=== PATIENT | female | born 1960 | race Caucasian/White ===

== ENCOUNTER → 2021-03-16 | Outpatient (CLI) | payer OTHER ==
--- NOTE | 2021-03-16 15:21 | REP ---
INDICATION: CARPAL TUNNEL. COMPARISON: None. TECHNIQUE: AP, lateral, oblique views of the right wrist FINDINGS: Mild generalized age-related changes are appreciated including subtle sclerosis along the periarticular surfaces. Old ulnar styloid fracture is suggested. No acute fracture or dislocation. IMPRESSION: Essentially age-related changes. <Electronically signed by Gibran Mas > 03/16/21 [id number]
== END ==
LOC: M SOG 13:34
PROVIDERS: ATTEND Orthopaedic Surgery Sports Medicine
DX: G56.01 Carpal tunnel syndrome, right upper limb (principal)

== ENCOUNTER 2021-09-15 07:40 | Day surgery (SDC) | payer OTHER ==
[~2021-09-15] VITALS: Ht 157.5 cm; Wt 79.4 kg
[~2021-09-15 07:40] MED LIST: ATOR1TAB19 PO; DIPH50CA PO; EMLA CREAM 5GM TUBE (LIDOCAINE/PRILOCAINE) TOP PRN; LIDOCAINE 1% MDV 20ML VIAL SQ PRN; LOSA100T5 PO; LR 1,000 ML IV ONE; MELO15TA28 PO
[2021-09-15] MEDS ORDERED: MIDAZOLAM INJ 2MG/2ML VIAL (J2250 PER 1MG) As Ordered ONE (09:16)
[2021-09-15] MEDS ORDERED: fentaNYL 100 MCG/2 ML INJECTION As Ordered ONE (09:17)
[2021-09-15] MEDS ORDERED: BUPIVACAINE HCL 0.25% 10ML VIAL As Ordered ONE (09:44)
[2021-09-15] MEDS ORDERED: dexameTHASONE 4 MG/ML 1ML VIAL (J1100 PER 1MG) As Ordered ONE (10:07)
[2021-09-15] MEDS ORDERED: propofoL 200 MG/20 ML VIAL As Ordered ONE (10:07)
[2021-09-15] MEDS ORDERED: LIDOCAINE 2% INJ 100 MG/5 ML SYRINGE As Ordered ONE (10:07)
[2021-09-15] MEDS ORDERED: ONDANSETRON 4MG/2ML VIAL As Ordered ONE (10:07)
[2021-09-15] MEDS ORDERED: KETOROLAC 60MG 2ML VIAL As Ordered ONE (10:32)
[2021-09-15] MEDS ORDERED: fentaNYL 100 MCG/2 ML INJECTION IV PRN (11:00)
[2021-09-15] MEDS ORDERED: ONDANSETRON 4MG/2ML VIAL IV PRN (11:00)
[2021-09-15] MEDS ORDERED: METOCLOPRAMIDE INJ 10MG/2ML VIAL (J2765 PER 1) IV PRN (11:00)
[2021-09-15] MEDS ORDERED: LR 1,000 ML IV SCH (11:00)
[2021-09-15] MEDS ORDERED: oxyCODONE 5MG TAB PO PRN (11:00)
[2021-09-15 11:49] VITALS: BP 137/78
== END 2021-09-15 12:12 | disposition home or self-care (01) ==
LOC: M SDC 07:40
PROVIDERS: ATTEND Orthopaedic Surgery Hand Surgery
DX: G56.01 Carpal tunnel syndrome, right upper limb (principal); I10 Essential (primary) hypertension; E78.00 Pure hypercholesterolemia, unspecified; M19.90 Unspecified osteoarthritis, unspecified site; R06.83 Snoring; Z79.899 Other long term (current) drug therapy
CPT/HCPCS: 29848; J1100; J1885; J2250; J2405; J3010

== ENCOUNTER → 2024-09-30 | Outpatient (REF) | payer OTHER, BC ==
[~2024-09-30] MED LIST changes: -EMLA CREAM 5GM TUBE (LIDOCAINE/PRILOCAINE) TOP PRN; -LIDOCAINE 1% MDV 20ML VIAL SQ PRN; -LR 1,000 ML IV ONE
== END ==
LOC: M LAB REF 17:08
PROVIDERS: ATTEND Neuromusculoskeletal Medicine, Sports Medicine
DX: M17.11 Unilateral primary osteoarthritis, right knee (principal)

== ENCOUNTER → 2024-10-15 | Outpatient (CLI) | payer BC ==
[~2024-10-15] MED LIST changes: +ATOR1TAB21 PO; +IBUP80TA PO; +PHEN37.511 PO; +SUZE50TA PO
== END ==
LOC: M RAD 16:23
PROVIDERS: ATTEND Neuromusculoskeletal Medicine, Sports Medicine
DX: M17.11 Unilateral primary osteoarthritis, right knee (principal)

== ENCOUNTER → 2024-12-20 | Outpatient (CLI) | payer BC ==
[~2024-12-20] MED LIST changes: +ASPI81TAEC PO; +PERCOCET PO
== END ==
LOC: M SOG 06:49
PROVIDERS: ATTEND Physician Assistant
DX: S83.421A Sprain of lateral collateral ligament of right knee, initial encounter (principal); M17.11 Unilateral primary osteoarthritis, right knee; Y93.9 Activity, unspecified; Y92.9 Unspecified place or not applicable

== ENCOUNTER → 2025-05-15 | Outpatient (CLI) | payer BC ==
[~2025-05-15] MED LIST changes: -DIPH50CA PO; +DIPH50CA31 PO
== END ==
LOC: M SOG 07:34
PROVIDERS: ATTEND Neuromusculoskeletal Medicine, Sports Medicine
DX: Z47.1 Aftercare following joint replacement surgery (principal); Z96.651 Presence of right artificial knee joint